=== PATIENT | female | born 1960 | race Caucasian/White ===

== ENCOUNTER 2020-04-26 07:44 | Day surgery (SDC) | payer OTHER, SELFPAY ==
[~2020-04-26] VITALS: Ht 157.5 cm; Wt 74.8 kg
[2020-04-26] MEDS ORDERED: LIDOCAINE 2% 100 MG/5 ML UJET TP ONE ×2 (09:50→09:51)
[2020-04-26] MEDS ORDERED: fentaNYL citrate 0.05 MG/ML VIAL ONE (09:50)
== END 2020-04-26 10:40 | disposition home or self-care (01) ==
LOC: MDS 07:44 → MFCC 07:48 → MDS 10:40
PROVIDERS: ATTEND Internal Medicine Gastroenterology
DX: R10.32 Left lower quadrant pain (principal); D12.0 Benign neoplasm of cecum; D12.7 Benign neoplasm of rectosigmoid junction; K57.30 Diverticulosis of large intestine without perforation or abscess without bleeding; Z86.010 Personal history of colon polyps; Z88.5 Allergy status to narcotic agent; Z20.828 Contact with and (suspected) exposure to other viral communicable diseases
CPT/HCPCS: 45385; J3010; U0003